=== PATIENT | male | born 1980 | race American Indian/Alaskan Native ===

== ENCOUNTER 2016-09-14 01:43 | Emergency (ER) | payer SELFPAY ==
--- NOTE | 2016-09-14 04:15 | XRay Report ---
FINAL REPORT EXAM: XR SHOULDER 2 RT HISTORY: rt shoulder pain post fall TECHNIQUE: 3 views of the right shoulder. PRIORS: None FINDINGS: Some degenerative change noted at the AC joint. Slight transverse widening of the AC joint may relate to remote injury. No elevation of the clavicle relative to the acromion to suggest acute AC separation. Normal subacromial space. Normal glenohumeral joint. No acute fracture or dislocation seen. IMPRESSION: 1. No acute finding. Some degenerative change at the AC joint, slight transverse widening of the AC joint may be related to remote injury.
[2016-09-14] MEDS ORDERED: TORADOL IM ONE (04:45)
--- NOTE | 2016-09-14 04:52 | Emergency Department Report ---
HPI - General Chief Complaint: Extremity Injury, Upper Time Seen by Provider: 09/14/16 04:39 - HPI HPI: 36-year-old male presents today with right shoulder pain 1 day. Patient states he slipped on ice on his driveway and landed on his right shoulder. Denies head injury or loss of consciousness. Denies numbness, weakness, paresthesias. He describes his pain as 8 out of 10 constant, sharp pain. Denies neck and back pain. Denies fever, chills, nausea, vomiting, chest pain, shortness of breath, abdominal pain. ED Past Medical Hx - Past Medical History Previous Medical History?: No - Surgical History Past Surgical History?: Yes Additional Surgical History: rt leg surgery - Social History Smoking Status: Current Every Day Smoker Substance Use Type: None - Medications Home Medications: Home Medications Medication Instructions Recorded Confirmed Last Taken Type Cyclobenzaprine HCl [Flexeril 5 MG 5 mg PO TID #15 tab 09/14/16 Unknown Rx TAB] Ketorolac [Toradol] 10 mg PO Q6H PRN #20 tablet 09/14/16 Unknown Rx ED Review of Systems ROS: Stated complaint: RT SHOULDER PAIN Other details as noted in HPI Constitutional: denies: chills, fever, malaise Eyes: denies: eye pain ENT: denies: ear pain, throat pain, congestion Respiratory: denies: cough, shortness of breath, wheezing Cardiovascular: denies: chest pain, palpitations Endocrine: no symptoms reported Gastrointestinal: denies: abdominal pain, nausea, vomiting Musculoskeletal: arthralgia. denies: back pain Skin: denies: rash Neurological: denies: headache, weakness, numbness, paresthesias Physical Exam - Physical Exam Vital Signs: Vital Signs 09/14/16 02:05 Temperature 97.7 F Pulse Rate 112 H Respiratory 18 Rate Blood Pressure 143/95 Blood Pressure 143/95 [Right] O2 Sat by Pulse 99 Oximetry Physical Exam: GENERAL: The patient is well-developed and well-nourished. Patient is in NAD. HEAD: Normocephalic. Atraumatic. CHEST/LUNGS: Clear to auscultation throughout. HEART/CARDIOVASCULAR: Regular rate and rhythm. No murmurs, rubs or gallops. ABDOMEN: Abdomen is soft, nontender. Bowel sounds normoactive. No guarding or rebound tenderness. RIGHT SHOULDER: Tenderness to palpation of shoulder joint and over the deltoid muscle group. Limited range of motion due to pain. Normal sensation. 2 point discrimination intact. Peripheral pulses intact. Capillary refill less than 2 seconds. NEURO: Alert and oriented x 3. Normal gait. ED Course Vital Signs 09/14/16 02:05 Temperature 97.7 F Pulse Rate 112 H Respiratory 18 Rate Blood Pressure 143/95 Blood Pressure 143/95 [Right] O2 Sat by Pulse 99 Oximetry ED Medical Decision Making - Lab Data Vital Signs 09/14/16 09/14/16 09/14/16 02:05 04:58 04:59 Temperature 97.7 F 97.8 F Pulse Rate 112 H 78 Respiratory 18 16 16 Rate Blood Pressure 143/95 Blood Pressure 143/95 110/63 [Right] O2 Sat by Pulse 99 95 Oximetry - Radiology Data Radiology results: report reviewed Right shoulder x-ray: Some degenerative change noted at the AC joint. Slight transverse widening of the AC joint where related to remote injury. No elevation of the clavicle relative to the acromion to suggest acute AC separation. Normal subacromial space. Normal glenohumeral joint. No acute fracture or dislocation seen. - Medical Decision Making 36-year-old male presents today with right shoulder pain post fall. His x-ray results revealed no acute finding. Some degenerative change at the AC joint, slight transverse widening of the AC joint may be related to remote injury. Patient has been provided with a referral for orthopedic. Patient was given Toradol for pain control. Patient is in no acute distress at this time. He will be discharged home and is encouraged to follow up with a orthopedic and primary care provider. He will be sent home on Flexeril and Toradol and is encouraged to return to the emergency room for any worsening symptoms. Critical care attestation.: If time is entered above; I have spent that time in minutes in the direct care of this critically ill patient, excluding procedure time. ED Disposition Clinical Impression: Shoulder pain Qualifiers: Laterality: right Chronicity: acute Qualified Code(s): M25.511 - Pain in right shoulder Shoulder contusion Qualifiers: Encounter type: initial encounter Laterality: right Qualified Code(s): S40.011A - Contusion of right shoulder, initial encounter Disposition: DISCHARGED TO HOME OR SELFCARE Is pt being admited?: No Does the pt Need Aspirin: No Condition: Stable Instructions: Shoulder Sprain (ED), Arthralgia (ED) Additional Instructions: Follow-up with orthopedic. Return to emergency department if symptoms worsen. Prescriptions: Cyclobenzaprine HCl [Flexeril 5 MG TAB] 5 mg PO TID #15 tab Ketorolac [Toradol] 10 mg PO Q6H PRN #20 tablet PRN Reason: Pain Referrals: PRIMARY CARE, [Primary Care Provider] - 3-5 Days HILARY BEE MD [Staff Physician] - 3-5 Days Forms: Work/School Release Form(ED) Time of Disposition: 04:54
[2016-09-14 05:00] VITALS: BP 110/63
== END 2016-09-14 05:08 | disposition home or self-care (01) ==
LOC: ED 01:43
DX: S40.011A Contusion of right shoulder, initial encounter (principal); F17.200 Nicotine dependence, unspecified, uncomplicated; W01.0XXA Fall on same level from slipping, tripping and stumbling without subsequent striking against object, initial encounter; Y93.89 Activity, other specified; Y99.8 Other external cause status; Y92.89 Other specified places as the place of occurrence of the external cause
CPT/HCPCS: 73030; 96372; 99283; J1885

== ENCOUNTER 2016-09-16 08:32 | Emergency (ER) | payer SELFPAY ==
--- NOTE | 2016-09-16 10:59 | Emergency Department Report ---
HPI - General Chief Complaint: Headache Time Seen by Provider: 09/16/16 10:34 - HPI HPI: 36-year-old male presents today with headache 2 days. Patient states that he was seen here 2 days ago for right shoulder pain and was prescribed Flexeril and Toradol. Positive for sudden onset of headache post medication. Last dose of medication was last night at 8 PM. Denies history of headaches. Positive for nausea and blurred vision. Denies fever, chills, chest pain, shortness of breath, abdominal pain. ED Past Medical Hx - Past Medical History Previous Medical History?: No - Surgical History Additional Surgical History: rt leg surgery - Social History Smoking Status: Current Every Day Smoker Substance Use Type: None - Medications Home Medications: Home Medications Medication Instructions Recorded Confirmed Last Taken Type Cyclobenzaprine HCl [Flexeril 5 MG 5 mg PO TID #15 tab 09/14/16 Unknown Rx TAB] Ketorolac [Toradol] 10 mg PO Q6H PRN #20 tablet 09/14/16 Unknown Rx traMADol [Ultram 50 MG tab] 50 mg PO Q6HR PRN #14 tablet 09/16/16 Unknown Rx ED Review of Systems ROS: Stated complaint: HEADACHES/MED Other details as noted in HPI Constitutional: denies: chills, fever, malaise Eyes: vision change. denies: eye pain ENT: denies: ear pain, throat pain, congestion Respiratory: denies: cough, shortness of breath, wheezing Cardiovascular: denies: chest pain, palpitations Endocrine: no symptoms reported Gastrointestinal: denies: abdominal pain, nausea, vomiting Neurological: headache. denies: weakness, numbness, paresthesias Physical Exam - Physical Exam Vital Signs: Vital Signs 09/16/16 08:47 Temperature 98.7 F Pulse Rate 76 Respiratory 16 Rate Blood Pressure 127/91 [Right] O2 Sat by Pulse 100 Oximetry Physical Exam: GENERAL: The patient is well-developed and well-nourished. Patient is in NAD. HEAD: Normocephalic. Atraumatic. EYES: Extraocular motions are intact, PERRL. NOSE: Normal nasal mucosa with no nasal discharge. THROAT: No erythema, swelling or exudates. NECK: No midline tenderness to palpation. Positive for bilateral paraspinal tenderness to palpation of cervical region. CHEST/LUNGS: Clear to auscultation throughout. HEART/CARDIOVASCULAR: Regular rate and rhythm. No murmurs, rubs or gallops. ABDOMEN: Abdomen is soft, nontender. No guarding or rebound tenderness. RIGHT SHOULDER: Tenderness to palpation of shoulder joint and over the deltoid muscle group. Limited range of motion due to pain. Normal sensation. 2 point discrimination intact. Peripheral pulses intact. Capillary refill less than 2 seconds. Neuro: Alert and oriented 3, normal gait, fluid speech, EOMs intact, normal facial sensation, strength exam 5/5 upper and lower extremities, GCS equals 15, finger to nose normal, negative Romberg test. ED Course Vital Signs 09/16/16 08:47 Temperature 98.7 F Pulse Rate 76 Respiratory 16 Rate Blood Pressure 127/91 [Right] O2 Sat by Pulse 100 Oximetry ED Medical Decision Making - Lab Data Vital Signs 09/16/16 08:47 Temperature 98.7 F Pulse Rate 76 Respiratory 16 Rate Blood Pressure 127/91 [Right] O2 Sat by Pulse 100 Oximetry - Radiology Data Radiology results: report reviewed CT HEAD WITHOUT CONTRAST: HISTORY: Headache, blurred vision. Serial contiguous axial images were obtained through the cranium. Intravenous contrast material was not administered. The ventricles are normal in size and appearance. There is no mass effect or midline shift. No areas of abnormally increased or decreased attenuation are seen. No mass lesion is seen. The mastoid air cells and visualized portions of the sinuses are normal. IMPRESSION: Cranial CT scan within normal limits. - Medical Decision Making 36-year-old male presents today with headache 2 days. Patient complains of sudden onset post taking Flexeril and Toradol. His cranial CT scan is within normal limits. Patient is asked to discontinue his medication. Patient is in no acute distress at this time. He will be discharged home and is encouraged to follow up with a primary care provider. He will be sent home on tramadol for his shoulder pain and is encouraged to return to the emergency room for any worsening symptoms. Critical care attestation.: If time is entered above; I have spent that time in minutes in the direct care of this critically ill patient, excluding procedure time. ED Disposition Clinical Impression: Shoulder pain Qualifiers: Laterality: right Chronicity: acute Qualified Code(s): M25.511 - Pain in right shoulder Headache Qualifiers: Headache type: unspecified Headache chronicity pattern: acute headache Intractability: not intractable Qualified Code(s): R51 - Headache Disposition: DISCHARGED TO HOME OR SELFCARE Is pt being admited?: No Does the pt Need Aspirin: No Condition: Stable Instructions: Shoulder Sprain (ED), Arthralgia (ED), Acute Headache (ED) Additional Instructions: Follow-up with primary care provider. Return to the emergency department if symptoms worsen. Prescriptions: traMADol [Ultram 50 MG tab] 50 mg PO Q6HR PRN #14 tablet PRN Reason: Pain Referrals: PRIMARY CARE, [Primary Care Provider] - 3-5 Days HILARY BEE MD [Staff Physician] - 3-5 Days [facility] [Outside] - 3-5 Days Forms: Work/School Release Form(ED) Time of Disposition: 11:51
--- NOTE | 2016-09-16 11:33 | Cat Scan Report ---
CT HEAD WITHOUT CONTRAST: HISTORY: Headache, blurred vision. Serial contiguous axial images were obtained through the cranium. Intravenous contrast material was not administered. The ventricles are normal in size and appearance. There is no mass effect or midline shift. No areas of abnormally increased or decreased attenuation are seen. No mass lesion is seen. The mastoid air cells and visualized portions of the sinuses are normal. IMPRESSION: Cranial CT scan within normal limits.
[2016-09-16 12:07] VITALS: BP 129/88
== END 2016-09-16 12:06 | disposition home or self-care (01) ==
LOC: ED 08:32
DX: M25.511 Pain in right shoulder (principal); R51 Headache; F17.200 Nicotine dependence, unspecified, uncomplicated
CPT/HCPCS: 70450

== ENCOUNTER 2016-09-20 23:41 | Emergency (ER) | payer SELFPAY | END 2016-09-21 01:59 | disposition left against medical advice (07) | LOC: ED 23:41 | DX: R42 Dizziness and giddiness (principal); R53.1 Weakness; Z53.21 Procedure and treatment not carried out due to patient leaving prior to being seen by health care provider ==

== ENCOUNTER 2016-09-21 07:59 | Emergency (ER) | payer SELFPAY ==
[2016-09-21 08:53] LABS: Eosinophils % (Auto) 1.7 % (0.0-4.3); Hematocrit 43.5 % (35.5-45.6); Hemoglobin 14.3 gm/dl (11.8-15.2); Mean Corpuscular HGB Conc 33 % (32-34); Mean Corpuscular Hemoglobin 30 pg (28-32); Mean Corpuscular Volume 92 fl (84-94); Platelet Count 200 K/mm3 (140-440); Red Blood Count 4.76 M/mm3 (3.65-5.03); Red Cell Distribution Width 14.3 % (13.2-15.2); White Blood Count 7.7 K/mm3 (4.5-11.0)
[2016-09-21 08:54] LABS: Anion Gap 15 mmol/L; Blood Urea Nitrogen 12 mg/dL (9-20); Calcium 8.6 mg/dL (8.4-10.2); Carbon Dioxide 26 mmol/L (22-30); Chloride 103.1 mmol/L (98-107); Glucose 100 mg/dL (75-100); Potassium 4.1 mmol/L (3.6-5.0); Sodium 140 mmol/L (137-145)
--- NOTE | 2016-09-21 08:56 | XRay Report ---
ROUTINE CHEST, TWO VIEWS: HISTORY: Shortness of breath. The trachea, heart, mediastinal contour, lung calix and bony thorax are unremarkable. IMPRESSION: Unremarkable chest x-ray.
[2016-09-21 13:00] VITALS: BP 119/74
--- NOTE | 2016-09-21 13:02 | Emergency Department Report ---
HPI - General Chief Complaint: Dyspnea/Respdistress Time Seen by Provider: 09/21/16 12:35 - HPI HPI: Chief complaint: Feeling weak HPI: Patient is 36-year-old male who has been seen here several times this month once the fall and a bruise shoulder and wants for a headache. X-ray of the shoulder and CT scan of his head is normal. Patient states yesterday he gave plasma but there was a problem with the machine and he did not receive his red blood cells back. Patient states since then he's felt weak. Patient states for 1 day had a productive cough with green sputum. Patient complains of mild pleuritic chest pain only on coughing and feels like he has a fever. Patient has a slight sore throat. Mode of arrival: private car Source: Patient Began: Yesterday Duration: Continuous Context: See above Quality: See above Severity: 0 out of 10 Improved with: Nothing Worsened with: Standing Associated signs and symptoms: See above ED Past Medical Hx - Surgical History Additional Surgical History: rt leg surgery - Social History Smoking Status: Current Every Day Smoker Substance Use Type: None - Medications Home Medications: Home Medications Medication Instructions Recorded Confirmed Last Taken Type Cyclobenzaprine HCl [Flexeril 5 MG 5 mg PO TID #15 tab 09/14/16 Unknown Rx TAB] Ketorolac [Toradol] 10 mg PO Q6H PRN #20 tablet 09/14/16 Unknown Rx traMADol [Ultram 50 MG tab] 50 mg PO Q6HR PRN #14 tablet 09/21/16 Unknown Rx ED Review of Systems ROS: Stated complaint: DIZZINESS/WEAKNESS Other details as noted in HPI ROS Constitutional: ? fever ENT: No uri symptoms Cardiovascular: No chest pain Respiratory: No cough GI: No nausea vomiting or diarrhea : No dysuria frequency or urgency, Skin: No rash Neuro: No focal weakness or numbness Psych: No depression Shiv/lymph: No edema Physical Exam - Physical Exam Vital Signs: Vital Signs 09/21/16 09/21/16 08:15 12:40 Temperature 97.6 F Pulse Rate 71 76 Respiratory 20 16 Rate Blood Pressure 126/86 Blood Pressure 126/79 [Left] O2 Sat by Pulse 100 Oximetry Physical Exam: GENERAL: The patient is well-developed well-nourished . Orthostatic vital signs within normal limits. HEENT: Normocephalic. Atraumatic. Extraocular motions are intact. Patient has moist mucous membranes. NECK: Supple. No meningitic signs are noted. There is no adenopathy noted. CHEST/LUNGS: Clear to auscultation. There is no respiratory distress noted. HEART/CARDIOVASCULAR: Regular. There is no tachycardia. There is no gallop rub or murmur. ABDOMEN: Abdomen is soft, nontender. Patient has normal bowel sounds. There is no abdominal distention. SKIN: There is no rash. There is no edema. There is no diaphoresis. NEURO: The patient is awake, alert, and oriented. The patient is cooperative. The patient has no focal neurologic deficits. The patient has normal speech. MUSCULOSKELETAL: There is no tenderness or deformity. There is no limitation range of motion. There is no evidence of acute injury. ED Course Vital Signs 09/21/16 09/21/16 08:15 12:40 Temperature 97.6 F Pulse Rate 71 76 Respiratory 20 16 Rate Blood Pressure 126/86 Blood Pressure 126/79 [Left] O2 Sat by Pulse 100 Oximetry ED Medical Decision Making - Lab Data Result diagrams: 09/21/16 08:24 09/21/16 08:24 Rapid strep is negative. - EKG Data -: EKG Interpreted by Mo EKG shows normal: sinus rhythm Rate: normal (69) - EKG Data When compared to previous EKG there are: previous EKG unavailable Interpretation: normal EKG - Radiology Data Radiology results: report reviewed (chest x-ray shows no acute process) Critical care attestation.: If time is entered above; I have spent that time in minutes in the direct care of this critically ill patient, excluding procedure time. ED Disposition Clinical Impression: Acute bronchitis Qualifiers: Bronchitis organism: unspecified organism Qualified Code(s): J20.9 - Acute bronchitis, unspecified Disposition: DISCHARGED TO HOME OR SELFCARE Is pt being admited?: No Does the pt Need Aspirin: No Condition: Stable Instructions: Acute Bronchitis (ED) Prescriptions: traMADol [Ultram 50 MG tab] 50 mg PO Q6HR PRN #14 tablet PRN Reason: Pain Referrals: PRIMARY CARE, [Primary Care Provider] - 3-5 Days Time of Disposition: 13:38
== END 2016-09-21 13:46 | disposition home or self-care (01) ==
LOC: ED 07:59
DX: J20.9 Acute bronchitis, unspecified (principal); F17.200 Nicotine dependence, unspecified, uncomplicated
CPT/HCPCS: 36415; 71020; 80048; 84484; 85025; 87116; 87430; 93005; 93010; 99284

== ENCOUNTER 2016-12-13 00:30 | Emergency (ER) | payer SELFPAY ==
[2016-12-13] MEDS ORDERED: TYLENOL PO ONE ×2 (01:59→03:28)
--- NOTE | 2016-12-13 03:28 | XRay Report ---
FINAL REPORT PROCEDURE: XR KNEE 1-2V RT TECHNIQUE: RIGHT knee radiographs, AP and lateral views. CPT 56871 HISTORY: right knee pain COMPARISON: No prior studies are available for comparison. FINDINGS: Fracture (s) and/or Dislocation(s): None . Alignment: Normal . Joint space(s): Normal . Soft tissues: Normal . Bone mineralization: Normal . Foreign bodies: None . IMPRESSION: Normal Examination.
--- NOTE | 2016-12-13 03:29 | Emergency Department Report ---
ED Lower Extremity HPI - General Chief Complaint: Extremity Injury, Lower Stated Complaint: KNEE PAIN Time Seen by Provider: 12/13/16 02:58 Source: patient Mode of arrival: Ambulatory Limitations: No Limitations - History of Present Illness Initial Comments: Patient here reported that 2 days ago while at work he slipped on some ice in the freezer and injured his right knee. She reports is having pain 10 out of 10 to her right knee. 2 [id number] medication but did not help patient is allergic to Motrin. Denies any numbness or tingling to right lower extremity. Denies any head injury. MD Complaint: knee injury (right) Onset/Timin -: days(s) Injury: Knee: Right (slipped and fell on some ice at work now with pain.) Type of Injury: other (fell on the right knee) Place: work Severity: severe Severity scale (0 -10): 10 Improves With: cold therapy, rest, other ([id number] pain medication) Worsens With: weight bearing, movement, palpation Context: fall Associated Symptoms: swelling, able to partially bear weight. denies: numbness , tingling Treatments Prior to Arrival: cold therapy, other ([id number]-[id number] pain medication) - Related Data Previous Rx's Medication Instructions Recorded Last Taken Type Cyclobenzaprine HCl [Flexeril 5 MG 5 mg PO TID #15 tab 09/14/16 Unknown Rx TAB] Ketorolac [Toradol] 10 mg PO Q6H PRN #20 tablet 09/14/16 Unknown Rx traMADol [Ultram 50 MG tab] 50 mg PO Q6HR PRN #20 tablet 12/13/16 Unknown Rx Allergies Allergy/AdvReac Type Severity Reaction Status Date / Time ibuprofen [From Motrin] AdvReac Nausea Verified 12/13/16 01:58 ED Review of Systems ROS: Stated complaint: KNEE PAIN Other details as noted in HPI Comment: All other systems reviewed and negative Constitutional: denies: chills, fever Respiratory: no symptoms reported Cardiovascular: denies: chest pain, palpitations, edema, syncope Gastrointestinal: denies: abdominal pain, nausea, vomiting Musculoskeletal: joint swelling, arthralgia. denies: back pain Skin: denies: rash Neurological: denies: headache, weakness, confusion, abnormal gait, vertigo ED Past Medical Hx - Past Medical History Previous Medical History?: Yes Hx Hypertension: Yes (diet-controlled) - Surgical History Past Surgical History?: Yes Additional Surgical History: rt leg surgery - Family History Family history: hypertension - Social History Smoking Status: Never Smoker Substance Use Type: None - Medications Home Medications: Home Medications Medication Instructions Recorded Confirmed Last Taken Type Cyclobenzaprine HCl [Flexeril 5 MG 5 mg PO TID #15 tab 09/14/16 Unknown Rx TAB] Ketorolac [Toradol] 10 mg PO Q6H PRN #20 tablet 09/14/16 Unknown Rx traMADol [Ultram 50 MG tab] 50 mg PO Q6HR PRN #20 tablet 12/13/16 Unknown Rx ED Physical Exam - General Limitations: No Limitations General appearance: alert, in no apparent distress - Head Head exam: Present: atraumatic, normocephalic, normal inspection - Eye Eye exam: Present: normal appearance, PERRL, EOMI. Absent: periorbital swelling , periorbital tenderness Pupils: Present: normal accommodation - Neck Neck exam: Present: normal inspection, full ROM. Absent: tenderness, meningismus, lymphadenopathy - Respiratory Respiratory exam: Present: normal lung sounds bilaterally. Absent: respiratory distress, chest wall tenderness - Cardiovascular Cardiovascular Exam: Present: regular rate, normal rhythm, normal heart sounds - GI/Abdominal GI/Abdominal exam: Present: soft, normal bowel sounds. Absent: distended, tenderness, guarding, rebound, rigid - Extremities Exam Extremities exam: Present: normal inspection, tenderness (right anterior knee), normal capillary refill. Absent: pedal edema, joint swelling, calf tenderness - Expanded Lower Extremity Exam Right Hip exam: Present: normal inspection, full ROM, pelvic stability. Absent: tenderness, swelling, abrasion, laceration, ecchymosis, deformity, crepidus, dislocation, erythema, external rotation, internal rotation, shortening Upper Leg exam: Present: normal inspection, full ROM. Absent: tenderness, swelling, abrasion, laceration, ecchymosis, deformity, crepidus, dislocation, erythema Knee exam: Present: normal inspection, full ROM (for full range of motion to his right knee but he said it hurts with flexion and extension.), tenderness ( anterior knee.), full knee extension. Absent: swelling, abrasion, laceration, ecchymosis, deformity, crepidus, dislocation, erythema, effusion, pain w/ pronation/supination, posterior draw sign, pain/laxity with valgus, pain/laxity with varus Lower Leg exam: Present: normal inspection, full ROM. Absent: tenderness, swelling, abrasion, laceration, ecchymosis, deformity, crepidus, dislocation, erythema, palpable cord, Kaity's sign Ankle exam: Present: normal inspection, full ROM. Absent: tenderness, swelling , abrasion, laceration, ecchymosis, deformity, crepidus, dislocation, erythema, anterior draw sign Foot/Toe exam: Present: normal inspection, full ROM. Absent: tenderness, swelling, abrasion, laceration, ecchymosis, deformity, crepidus, dislocation, erythema, amputation, puncture wound, foreign body, calcaneal tenderness, tenderness at base of 5th metatarsal, nail avulsion, subungual hematoma Neuro vascular tendon exam: Present: no vascular compromise. Absent: pulse deficit, abnormal cap refill, motor deficit, sensory deficit, tendon deficit, extremity cold to touch, pallor, abnormal 2-point discrimination, decreased fine /light touch, foot drop, peroneal nerve deficit, significant pain with passive ROM of distal joint Gait: Positive: observed and limited by pain - Neurological Exam Neurological exam: Present: alert, oriented X3, normal gait, reflexes normal - Psychiatric Psychiatric exam: Present: normal affect, normal mood - Skin Skin exam: Present: warm, dry, intact, normal color. Absent: rash ED Course Vital Signs 12/13/16 12/13/16 12/13/16 01:48 03:03 03:42 Temperature 97.7 F Pulse Rate 87 Respiratory 18 20 20 Rate Blood Pressure 141/104 Blood Pressure 141/104 [Left] O2 Sat by Pulse 98 Oximetry Vital Signs 12/13/16 12/13/16 12/13/16 01:48 03:03 03:42 Temperature 97.7 F Pulse Rate 87 Respiratory 18 20 20 Rate Blood Pressure 141/104 Blood Pressure 141/104 [Left] O2 Sat by Pulse 98 Oximetry Vital Signs 12/13/16 12/13/16 12/13/16 01:48 03:03 03:42 Temperature 97.7 F Pulse Rate 87 Respiratory 18 20 20 Rate Blood Pressure 141/104 Blood Pressure 141/104 [Left] O2 Sat by Pulse 98 Oximetry 12/13/16 04:13 Temperature 97.9 F Pulse Rate 87 Respiratory 20 Rate Blood Pressure Blood Pressure 138/90 [Left] O2 Sat by Pulse 98 Oximetry - Reevaluation(s) Reevaluation #1: 12/13/16 04:13 Patient given Tylenol 1 g in triage area for knee pain which she said his pain is better. - Orthopedic Splinting/Casting Injury #1 Side: right Lower Extremity Injury Location: knee Lower Extremity Immobilizer: Candido wrap Other Orthopedic Equipment: crutches ED Lower Extremity MDM - Radiology Data Radiology results: report reviewed X-ray of the right knee reveal no acute fracture or dislocation. No effusion noted. - Medical Decision Making ED course: She is allergic to Motrin and therefore he was given Tylenol 1 gm in triage area for right knee pain. The patient had x-ray of his right knee was negative. He is tender to palpate to anterior knee and with active and passive range of motion. See procedure note and splinting. I discussed with patient that he has knee pain and that if it continues need to follow-up with orthopedic doctor. Fritz protocol and treatment plan and he reports understanding. Condition discharged home with prescription for Ultram. Critical care attestation.: If time is entered above; I have spent that time in minutes in the direct care of this critically ill patient, excluding procedure time. ED Disposition Clinical Impression: Arthralgia of right knee Right knee injury Qualifiers: Encounter type: initial encounter Qualified Code(s): S89.91XA - Unspecified injury of right lower leg, initial encounter Disposition: DISCHARGED TO HOME OR SELFCARE Is pt being admited?: No Does the pt Need Aspirin: No Condition: Stable Instructions: Arthralgia (ED), Knee Pain (ED), Knee Exercises (GEN), RICE Therapy (ED) Additional Instructions: If you continue to have knee pain, please follow up with orthopedic doctor. You told me that he did not have a primary care physician, so please follow-up with outside Medical Center to manage her chronic hypertension Follow-up RICE Prescriptions: traMADol [Ultram 50 MG tab] 50 mg PO Q6HR PRN #20 tablet PRN Reason: Pain Referrals: [facility] [Outside] - 3-5 Days LOPEZ MATTSON MD [Staff Physician] - 3-5 Days Forms: Work/School Release Form(ED)
[2016-12-13 04:14] VITALS: BP 138/90
== END 2016-12-13 04:33 | disposition home or self-care (01) ==
LOC: ED 00:30
DX: S89.91XA Unspecified injury of right lower leg, initial encounter (principal); I10 Essential (primary) hypertension; W19.XXXA Unspecified fall, initial encounter; Y93.89 Activity, other specified; Y99.8 Other external cause status; Y92.69 Other specified industrial and construction area as the place of occurrence of the external cause

== ENCOUNTER 2016-12-17 13:24 | Emergency (ER) | payer SELFPAY ==
[2016-12-17] MEDS ORDERED: CATAPRES PO ONE (19:05)
--- NOTE | 2016-12-17 20:07 | XRay Report ---
FINAL REPORT EXAM: XR ANKLE 3 RT HISTORY: ankle pain and swelling TECHNIQUE: AP, lateral, and oblique views of the right ankle PRIORS: None. FINDINGS: There is no evidence for acute fracture or dislocation. No soft tissue swelling or radiopaque foreign bodies are seen. The ankle mortise is intact. Bony mineralization is normal and joint spaces are maintained. Posterior spurring off the talus is present. IMPRESSION: No acute soft tissue or bony abnormality noted.
[2016-12-17] MEDS ORDERED: TYLENOL PO ONE (20:50)
[2016-12-17 21:04] VITALS: BP 129/85
--- NOTE | 2016-12-17 22:11 | Emergency Department Report ---
Entered by VERONICA ARROYO, acting as scribe for CATARINO PAINTER NP. ED Lower Extremity HPI - General Chief Complaint: Extremity Injury, Lower Stated Complaint: RT ANKLE PAIN Time Seen by Provider: 12/17/16 18:47 Source: patient Mode of arrival: Ambulatory Limitations: No Limitations - History of Present Illness Initial Comments: 36 year old male with a PMHx of HTN presents to the ED c/o sudden right ankle pain that began 3 days ago. Patient states that he was evaluated on 12/13/2016 in this ED after twisting his right knee. He states that his right knee pain has now radiated to his right ankle. Rates right ankle pain an 8 out 10 in severity. He notes in had right knee, right ankle, and right kay surgery in the past. Denies any deformity, swelling, numbness, tingling, chest pain, and shortness of breath. Pain is worsened with walking. He is currently aware of HTN and cannot afford his medication. Denies using tobacco products and alcohol consumption. Allergic to Ibuprofen. MD Complaint: ankle injury (right, secondary to twisting right knee) Onset/Timin -: days(s) Injury: Ankle: Right (secondary to twisting right knee) Place: home Severity: moderate Severity scale (0 -10): 8 Improves With: immobilization Worsens With: weight bearing, movement, palpation Associated Symptoms: able to partially bear weight. denies: swelling, numbness , tingling, other (deformity, chest pain, shortness of breath) - Related Data Previous Rx's Medication Instructions Recorded Last Taken Type Cyclobenzaprine HCl [Flexeril 5 MG 5 mg PO TID #15 tab 09/14/16 Unknown Rx TAB] Ketorolac [Toradol] 10 mg PO Q6H PRN #20 tablet 09/14/16 Unknown Rx traMADol [Ultram 50 MG tab] 50 mg PO Q6HR PRN #20 tablet 12/13/16 Unknown Rx traMADol [Ultram 50 MG tab] 50 mg PO PRN PRN #14 tablet 12/17/16 Unknown Rx Allergies Allergy/AdvReac Type Severity Reaction Status Date / Time ibuprofen [From Motrin] AdvReac Nausea Verified 12/13/16 01:58 ED Review of Systems Comment: All other systems reviewed and negative Constitutional: denies: chills, fever, other (tingling and shortness of breath) ENT: denies: ear pain, throat pain Respiratory: denies: orthopnea, shortness of breath, SOB with exertion, SOB at rest Cardiovascular: denies: chest pain, palpitations, dyspnea on exertion, orthopnea Endocrine: no symptoms reported Gastrointestinal: denies: nausea, vomiting Genitourinary: denies: urgency, dysuria Musculoskeletal: other (right ankle pain, but denies right ankle deformity). denies: joint swelling (right ankle) Skin: denies: rash, lesions Neurological: denies: numbness ED Past Medical Hx - Past Medical History Hx Hypertension: Yes (diet-controlled) - Surgical History Additional Surgical History: rt leg surgery - Social History Smoking Status: Never Smoker Substance Use Type: None - Medications Home Medications: Home Medications Medication Instructions Recorded Confirmed Last Taken Type Cyclobenzaprine HCl [Flexeril 5 MG 5 mg PO TID #15 tab 09/14/16 Unknown Rx TAB] Ketorolac [Toradol] 10 mg PO Q6H PRN #20 tablet 09/14/16 Unknown Rx traMADol [Ultram 50 MG tab] 50 mg PO Q6HR PRN #20 tablet 12/13/16 Unknown Rx traMADol [Ultram 50 MG tab] 50 mg PO PRN PRN #14 tablet 12/17/16 Unknown Rx ED Physical Exam - General Limitations: No Limitations General appearance: alert, in no apparent distress - Head Head exam: Present: atraumatic, normocephalic - Eye Eye exam: Present: normal appearance, PERRL, EOMI Pupils: Present: normal accommodation - ENT ENT exam: Present: normal exam, mucous membranes moist - Neck Neck exam: Present: normal inspection, full ROM. Absent: tenderness, lymphadenopathy - Respiratory Respiratory exam: Present: normal lung sounds bilaterally. Absent: respiratory distress - Cardiovascular Cardiovascular Exam: Present: regular rate, normal rhythm, normal heart sounds. Absent: systolic murmur, diastolic murmur, rubs, gallop - GI/Abdominal GI/Abdominal exam: Present: soft. Absent: distended, tenderness - Extremities Exam Extremities exam: Present: full ROM (limited right ankle), tenderness (moderate right ankle), normal capillary refill. Absent: pedal edema, joint swelling ( right ankle), calf tenderness - Expanded Lower Extremity Exam Right Hip exam: Present: normal inspection, full ROM Upper Leg exam: Present: normal inspection, full ROM Knee exam: Present: normal inspection, full ROM Lower Leg exam: Present: normal inspection, full ROM. Absent: tenderness Foot/Toe exam: Present: normal inspection, tenderness (moderate right ankle). Absent: full ROM (limited right ankle due to pain), swelling, abrasion, laceration, ecchymosis, deformity, dislocation, erythema, puncture wound Neuro vascular tendon exam: Present: no vascular compromise. Absent: pulse deficit, abnormal cap refill, motor deficit, sensory deficit, tendon deficit, pallor Gait: Positive: antalgic 1 - pain - Back Exam Back exam: Present: normal inspection, full ROM - Neurological Exam Neurological exam: Present: alert, oriented X3 - Psychiatric Psychiatric exam: Present: normal affect, normal mood - Skin Skin exam: Present: warm, dry, intact. Absent: rash, erythema, pallor, abrasion , ecchymosis ED Course Vital Signs 12/17/16 12/17/16 12/17/16 14:02 20:01 20:11 Temperature 98.1 F Pulse Rate 94 H 82 82 Respiratory 16 18 Rate Blood Pressure 148/96 122/86 Blood Pressure 122/86 [Left] O2 Sat by Pulse 100 97 Oximetry 12/17/16 21:03 Temperature 99.3 F Pulse Rate 97 H Respiratory 12 Rate Blood Pressure Blood Pressure 129/85 [Left] O2 Sat by Pulse 100 Oximetry - Reevaluation(s) Reevaluation #1: 12/17/16 20:55 Patient is resting comfortably. No signs of distress or toxic appearance. ED Lower Extremity MDM - Medical Decision Making Ed course: 36-year-old male that presents with right ankle pain. 1- prescribed acetaminophen 600 mg by mouth. 2- x-ray results read by Dr. Tavera. Impression. No acute soft tissue or bony abdomen noted. 3- patient received a Candido bandage. No numbness or tingling sensation noted. 4- I instructed patient to follow-up with orthopedic doctor in 3-5 days. 5- follow with a primary care/crime lab analyst doctor in 3- 5 days as well for hypertension. 6-instructed the patient to [facility] 7- at this time the patient does not seem toxic or ill appearance. Agrees to discharge plan. she reported this time. ED Disposition Clinical Impression: Sprain of ankle Disposition: DISCHARGED TO HOME OR SELFCARE Is pt being admited?: No Does the pt Need Aspirin: No Condition: Stable Instructions: Ankle Sprain (ED), RICE Therapy (ED) Additional Instructions: follow-up with her primary care doctor in 3-5 days. Follow-up with her orthopedic doctor in 3-5 days. If he had a sudden symptoms of numbness, tingling, swelling of the extremity present for about emergency room. Rest, elevate, compress, and ice to extremity Prescriptions: traMADol [Ultram 50 MG tab] 50 mg PO PRN PRN #14 tablet PRN Reason: Pain Referrals: PRIMARY CARE, [Primary Care Provider] - 3-5 Days ODELL RAIN MD [Staff Physician] - 3-5 Days [facility] [Outside] - 3-5 Days [facility] [Outside] - 3-5 Days This documentation as recorded by the DINA enriquez JASMINE,accurately reflects the service I personally performed and the decisions made by me,CATARINO PAINTER, ELVI.
== END 2016-12-17 21:16 | disposition home or self-care (01) ==
LOC: ED 13:24
DX: S93.401A Sprain of unspecified ligament of right ankle, initial encounter (principal); I10 Essential (primary) hypertension; Z88.6 Allergy status to analgesic agent; X58.XXXA Exposure to other specified factors, initial encounter; Y93.89 Activity, other specified; Y99.8 Other external cause status; Y92.098 Other place in other non-institutional residence as the place of occurrence of the external cause
CPT/HCPCS: 99283

== ENCOUNTER 2017-08-05 19:21 | Emergency (ER) | payer OTHER ==
--- NOTE | 2017-08-05 21:14 | XRay Report ---
FINAL REPORT EXAM: XR ANKLE 3+V LT HISTORY: left ankle injury, ankle pain TECHNIQUE: Left ankle three views PRIORS: None. FINDINGS: There is lucency seen through the medial malleolus consistent with an acute traumatic nondisplaced fracture. There is medial soft tissue swelling. No additional acute bony findings are identified. Joint spaces are within normal limits. IMPRESSION: Acute nondisplaced fracture of the medial malleolus
--- NOTE | 2017-08-05 21:52 | Emergency Department Report ---
ED Lower Extremity HPI - General Chief Complaint: Extremity Injury, Lower Stated Complaint: L. ANKLE INJURY Time Seen by Provider: 08/05/17 21:18 Source: patient Mode of arrival: Wheelchair Limitations: No Limitations - History of Present Illness Initial Comments: This is a 37-year-old male accompanied by mother nontoxic, well nourished in appearance, no acute signs of distress presents to the ED with c/o of left ankle pain and swelling x1 day. Patient stated he fell down the curb and twisted her ankle this afternoon around 12 PM. Patient denies any numbness, tingling, fever, chills, headache, decreased ROM of phalanx, stiff neck, chest pain, shortness of breathe. Patient denies any other trauma. States allergies to Motrin with history of diet controlled HTN. MD Complaint: ankle injury -: This afternoon Injury: Ankle: Left Type of Injury: inversion Place: street/outdoors Severity: mild Severity scale (0 -10): 8 Improves With: nothing Worsens With: nothing Context: other (twisted) Associated Symptoms: swelling, unable to bear weight. denies: snap/pop sensation, numbness, tingling - Related Data Previous Rx's Medication Instructions Recorded Last Taken Type Cyclobenzaprine HCl [Flexeril 5 MG 5 mg PO TID #15 tab 09/14/16 Unknown Rx TAB] Ketorolac [Toradol] 10 mg PO Q6H PRN #20 tablet 09/14/16 Unknown Rx traMADol [Ultram 50 MG tab] 50 mg PO Q6HR PRN #20 tablet 12/13/16 Unknown Rx traMADol [Ultram 50 MG tab] 50 mg PO PRN PRN #14 tablet 12/17/16 Unknown Rx traMADol [Ultram] 50 mg PO Q6HR PRN #15 tablet 08/05/17 Unknown Rx Allergies Allergy/AdvReac Type Severity Reaction Status Date / Time ibuprofen [From Motrin] AdvReac Nausea Verified 12/13/16 01:58 ED Review of Systems ROS: Stated complaint: L. ANKLE INJURY Other details as noted in HPI Constitutional: denies: chills, fever Eyes: denies: eye pain, eye discharge, vision change ENT: denies: ear pain, throat pain Respiratory: denies: cough, shortness of breath, wheezing Cardiovascular: denies: chest pain, palpitations Endocrine: no symptoms reported Gastrointestinal: denies: abdominal pain, nausea, diarrhea Genitourinary: denies: urgency, dysuria Musculoskeletal: denies: back pain, joint swelling, arthralgia Skin: denies: rash, lesions Neurological: denies: headache, weakness, paresthesias Psychiatric: denies: anxiety, depression Hematological/Lymphatic: denies: easy bleeding, easy bruising ED Past Medical Hx - Past Medical History Hx Hypertension: Yes (diet-controlled) - Surgical History Additional Surgical History: rt leg surgery - Social History Smoking Status: Current Every Day Smoker Substance Use Type: Alcohol - Medications Home Medications: Home Medications Medication Instructions Recorded Confirmed Last Taken Type Cyclobenzaprine HCl [Flexeril 5 MG 5 mg PO TID #15 tab 09/14/16 Unknown Rx TAB] Ketorolac [Toradol] 10 mg PO Q6H PRN #20 tablet 09/14/16 Unknown Rx traMADol [Ultram 50 MG tab] 50 mg PO Q6HR PRN #20 tablet 12/13/16 Unknown Rx traMADol [Ultram 50 MG tab] 50 mg PO PRN PRN #14 tablet 12/17/16 Unknown Rx traMADol [Ultram] 50 mg PO Q6HR PRN #15 tablet 08/05/17 Unknown Rx ED Physical Exam - General Limitations: No Limitations General appearance: alert, in no apparent distress - Head Head exam: Present: atraumatic, normocephalic - Eye Eye exam: Present: normal appearance - ENT ENT exam: Present: normal exam, normal orophraynx, mucous membranes moist, TM's normal bilaterally, normal external ear exam - Neck Neck exam: Present: normal inspection, full ROM. Absent: tenderness, meningismus, lymphadenopathy, thyromegaly - Respiratory Respiratory exam: Present: normal lung sounds bilaterally. Absent: respiratory distress, wheezes, rales, rhonchi, stridor, chest wall tenderness, accessory muscle use, decreased breath sounds, prolonged expiratory - Cardiovascular Cardiovascular Exam: Present: regular rate, normal rhythm, normal heart sounds. Absent: bradycardia, tachycardia, irregular rhythm, systolic murmur, diastolic murmur, rubs, gallop - GI/Abdominal GI/Abdominal exam: Present: soft, normal bowel sounds. Absent: distended, tenderness, guarding, rebound, rigid, diminished bowel sounds - Rectal Rectal exam: Present: deferred - Extremities Exam Extremities exam: Present: normal inspection, full ROM, tenderness, normal capillary refill. Absent: pedal edema, joint swelling, calf tenderness - Expanded Lower Extremity Exam Left Hip exam: Present: normal inspection, full ROM Upper Leg exam: Present: normal inspection, full ROM Knee exam: Present: normal inspection, full ROM Lower Leg exam: Present: normal inspection, full ROM Ankle exam: Present: normal inspection, full ROM, tenderness, swelling. Absent : abrasion, laceration, ecchymosis, deformity, crepidus, dislocation, erythema, anterior draw sign Foot/Toe exam: Present: normal inspection, full ROM Neuro vascular tendon exam: Present: no vascular compromise. Absent: pulse deficit, abnormal cap refill, motor deficit, sensory deficit, tendon deficit, extremity cold to touch, pallor, abnormal 2-point discrimination, decreased fine /light touch, foot drop, peroneal nerve deficit, significant pain with passive ROM of distal joint Gait: Positive: observed and limited by pain 1 - pain with swelling - Back Exam Back exam: Present: normal inspection - Neurological Exam Neurological exam: Present: alert, oriented X3, CN II-XII intact, normal gait, reflexes normal - Psychiatric Psychiatric exam: Present: normal affect, normal mood - Skin Skin exam: Present: warm, dry, intact, normal color. Absent: rash - Other Other exam information: Left lower extremity is neurovascular intact. Normal sensation. Normal ROM of phalanx. Normal cap refill <2 seconds. ED Course Vital Signs 08/05/17 19:56 Temperature 98 F Pulse Rate 87 Respiratory 20 Rate Blood Pressure 159/94 O2 Sat by Pulse 98 Oximetry - Reevaluation(s) Reevaluation #1: 08/05/17 21:50 Patient is speaking in full sentences with no signs of distress noted. ED Lower Extremity MDM - Medical Decision Making This is a 37-year-old male that presents with nondisplaced medial malleolus fracture. Xray obtained and dictated by radiologist. Patient has been notified of xray results with no further questions noted by the patient. Patient received left short leg Bishop splint. Post splint assessment: Neurovascular intact with normal cap refill <2 seconds; patient denies feeling of numbness, tingling, or too tight. Patient received crutches and was educated how to use crutches by RN. Patient was instructed to RICe therapy. PAtient was instructed to elevate leg above heart level. PAtient was instructed to Follow-up with a primary care doctor/orthopedic doctor in 3-5 days or if symptoms worsen and continue return to emergency room as soon as possible. At time time of discharge, the patient does not seem toxic or ill in appearance. No acute signs of distress noted. Patient agrees to discharge treatment plan of care. No further questions noted by the patient. Critical care attestation.: If time is entered above; I have spent that time in minutes in the direct care of this critically ill patient, excluding procedure time. ED Disposition Clinical Impression: Medial malleolar fracture Qualifiers: Encounter type: initial encounter Fracture type: closed Fracture alignment: nondisplaced Laterality: left Qualified Code(s): S82.55XA - Nondisplaced fracture of medial malleolus of left tibia, initial encounter for closed fracture Disposition: DC-01 TO HOME OR SELFCARE Is pt being admited?: No Does the pt Need Aspirin: No Condition: Stable Instructions: Ankle Fracture (ED), RICE Therapy (ED), Tramadol (By mouth) Additional Instructions: Follow-up with a primary care doctor/orthopedic doctor in 3-5 days or if symptoms worsen and continue return to emergency room as soon as possible. Rest, elevate and ice extremity Do not operate any machinery while taking Ultram due to drowsiness Prescriptions: traMADol [Ultram] 50 mg PO Q6HR PRN #15 tablet PRN Reason: Pain Referrals: PRIMARY CARE, [Primary Care Provider] - 3-5 Days JAY JAY MORROW MD [Staff Physician] - 3-5 Days ODELL RAIN MD [Staff Physician] - 3-5 Days [facility] [Outside] - 3-5 Days [facility] [Outside] - 3-5 Days Forms: Work/School Release Form(ED)
[2017-08-05] MEDS ORDERED: TYLENOL PO ONE (21:54)
[2017-08-05] MEDS ORDERED: TRIPLE ANTIBIOTIC TP ONE ×2 (22:30→22:33)
[2017-08-05 22:55] VITALS: BP 149/90
== END 2017-08-05 22:55 | disposition home or self-care (01) ==
LOC: ED 19:21
DX: S82.55XA Nondisplaced fracture of medial malleolus of left tibia, initial encounter for closed fracture (principal); I10 Essential (primary) hypertension; F17.200 Nicotine dependence, unspecified, uncomplicated; Z88.6 Allergy status to analgesic agent; X50.1XXA Overexertion from prolonged static or awkward postures, initial encounter; Y93.89 Activity, other specified; Y92.89 Other specified places as the place of occurrence of the external cause; Y99.8 Other external cause status
CPT/HCPCS: A6250

== ENCOUNTER 2017-09-08 11:14 | Emergency (ER) | payer OTHER ==
[2017-09-08 11:38] VITALS: BP 144/101
[2017-09-08] MEDS ORDERED: ASPIRIN PO ONE (11:40)
[2017-09-08 12:09] LABS: Basophils % (Auto) 0.4 % (0.0-1.8); Eosinophils # (Auto) 0.1 K/mm3 (0.0-0.4); Eosinophils % (Auto) 0.7 % (0.0-4.3); Hematocrit 45.3 % (35.5-45.6); Hemoglobin 15.3 gm/dl (11.8-15.2); Lymphocytes # (Auto) 1.7 K/mm3 (1.2-5.4); Lymphocytes % (Auto) 20.7 % (13.4-35.0); Mean Corpuscular HGB Conc 34 % (32-34); Mean Corpuscular Hemoglobin 31 pg (28-32); Mean Corpuscular Volume 90 fl (84-94); Monocytes # (Auto) 0.8 K/mm3 (0.0-0.8); Monocytes % (Auto) 9.5 % (0.0-7.3); Platelet Count 214 K/mm3 (140-440); Red Blood Count 5.01 M/mm3 (3.65-5.03); Red Cell Distribution Width 13.5 % (13.2-15.2)
[2017-09-08 12:32] LABS: BUN/Creatinine Ratio 16; Blood Urea Nitrogen 14 mg/dL (9-20); Calcium 9.9 mg/dL (8.4-10.2); Hemolysis Index 7
== END 2017-09-08 20:21 | disposition left against medical advice (07) ==
LOC: ED 11:14
DX: R07.9 Chest pain, unspecified (principal); Z53.21 Procedure and treatment not carried out due to patient leaving prior to being seen by health care provider
CPT/HCPCS: 36415; 80048; 84484; 85025; 93005; 93010

== ENCOUNTER 2018-10-21 00:39 | Emergency (ER) | payer SELFPAY ==
[2018-10-21 00:49] VITALS: BP 138/87
[2018-10-21] MEDS ORDERED: NACL 0.9% 1000 ML 1,000 ML IV ONE (00:50)
[2018-10-21 01:12] LABS: Basophils % (Auto) 0.4 % (0.0-1.8); Eosinophils # (Auto) 0.1 K/mm3 (0.0-0.4); Eosinophils % (Auto) 0.6 % (0.0-4.3); Hematocrit 45.2 % (35.5-45.6); Hemoglobin 15.3 gm/dl (11.8-15.2); Lymphocytes # (Auto) 2.3 K/mm3 (1.2-5.4); Lymphocytes % (Auto) 26.8 % (13.4-35.0); Mean Corpuscular HGB Conc 34 % (32-34); Mean Corpuscular Volume 90 fl (84-94); Monocytes # (Auto) 0.7 K/mm3 (0.0-0.8); Monocytes % (Auto) 8.3 % (0.0-7.3); Platelet Count 212 K/mm3 (140-440); Red Blood Count 5.02 M/mm3 (3.65-5.03); Red Cell Distribution Width 14.7 % (13.2-15.2)
[2018-10-21 01:38] LABS: Alanine Aminotransferase 24 units/L (7-56); Albumin 4.3 g/dL (3.9-5); BUN/Creatinine Ratio 9; Blood Urea Nitrogen 11 mg/dL (9-20); Calcium 9.1 mg/dL (8.4-10.2); Hemolysis Index 7
[2018-10-21 02:01] LABS: Bilirubin,Urine NEG (Negative); Blood,Urine NEG (Negative); Color,Urine Yellow (Yellow); Mucus,Urine 3+ /HPF
--- NOTE | 2018-10-21 03:25 | Emergency Department Report ---
Addendum entered and electronically signed by JAMES EVANS PA 10/25/18 07:22: ED Review of Systems ROS: Stated complaint: ABD PAIN/VOMITING Other details as noted in HPI Comment: All other systems reviewed and negative Gastrointestinal: abdominal pain (LLQ pain 2/10), nausea (has resolved), vomiting (has resolved) Original Note: ED Abdominal Pain HPI - General Chief Complaint: Abdominal Pain Stated Complaint: ABD PAIN/VOMITING Time Seen by Provider: 10/21/18 03:12 Source: patient Mode of arrival: Ambulatory Limitations: No Limitations - History of Present Illness Initial Comments: 38-year-old -[place] male presents to the emergency room reporting that he has left lower quadrant abdominal pain nausea vomiting. Patient reports he vomited 3 times today denies any nausea at this moment denies any diarrhea at this moment reports to me that his pains to 10. He reports that he missed work today so he came in for work note. He does admit to having a past medical history diverticulitis. He stated that he had taken Pepto-Bismol earlier today which she reports has helped. Patient reports that he drinks alcohol on a social basis. Patient currently does not take any medication on a daily basis MD Complaint: abdominal pain -: days(s) (1) Location: LLQ Migration to: no migration Severity scale (0 -10): 2 Quality: aching Consistency: intermittent Improves With: medication Worsens With: nothing Associated Symptoms: nausea, vomiting ( times 3, last 1900 on 10/20/17) Treatments Prior to Arrival: other (Pepto-Bismol) - Related Data Previous Rx's Medication Instructions Recorded Last Taken Type Cyclobenzaprine HCl [Flexeril 5 MG 5 mg PO TID #15 tab 09/14/16 Unknown Rx TAB] Ketorolac [Toradol] 10 mg PO Q6H PRN #20 tablet 09/14/16 Unknown Rx traMADol [Ultram 50 MG tab] 50 mg PO Q6HR PRN #20 tablet 12/13/16 Unknown Rx traMADol [Ultram 50 MG tab] 50 mg PO PRN PRN #14 tablet 12/17/16 Unknown Rx traMADol [Ultram] 50 mg PO Q6HR PRN #15 tablet 08/05/17 Unknown Rx Amoxicillin [Amoxicillin TAB] 875 mg PO BID #20 tablet 08/22/18 Unknown Rx Nystas/Diphen/Xyl Visc/Mylanta 15 ml MM Q4H PRN 5 Days ml 08/22/18 Unknown Rx [Magic Mouthwash] Allergies Allergy/AdvReac Type Severity Reaction Status Date / Time ibuprofen [From Motrin] AdvReac Nausea Verified 12/13/16 01:58 ED Review of Systems ROS: Stated complaint: ABD PAIN/VOMITING Other details as noted in HPI Comment: All other systems reviewed and negative Gastrointestinal: abdominal pain (LLQ), nausea, vomiting ED Past Medical Hx - Past Medical History Previous Medical History?: Yes Hx Hypertension: Yes (diet-controlled) - Surgical History Past Surgical History?: Yes Additional Surgical History: rt leg surgery - Social History Smoking Status: Current Every Day Smoker Substance Use Type: Alcohol - Medications Home Medications: Home Medications Medication Instructions Recorded Confirmed Last Taken Type Cyclobenzaprine HCl [Flexeril 5 MG 5 mg PO TID #15 tab 09/14/16 Unknown Rx TAB] Ketorolac [Toradol] 10 mg PO Q6H PRN #20 tablet 09/14/16 Unknown Rx traMADol [Ultram 50 MG tab] 50 mg PO Q6HR PRN #20 tablet 12/13/16 Unknown Rx traMADol [Ultram 50 MG tab] 50 mg PO PRN PRN #14 tablet 12/17/16 Unknown Rx traMADol [Ultram] 50 mg PO Q6HR PRN #15 tablet 08/05/17 Unknown Rx Amoxicillin [Amoxicillin TAB] 875 mg PO BID #20 tablet 08/22/18 Unknown Rx Nystas/Diphen/Xyl Visc/Mylanta 15 ml MM Q4H PRN 5 Days ml 08/22/18 Unknown Rx [Magic Mouthwash] ED Physical Exam - General Limitations: No Limitations General appearance: alert - Head Head exam: Present: atraumatic, normocephalic - Eye Eye exam: Present: normal appearance - ENT ENT exam: Present: mucous membranes moist - Neck Neck exam: Present: normal inspection - Respiratory Respiratory exam: Present: normal lung sounds bilaterally. Absent: respiratory distress - Cardiovascular Cardiovascular Exam: Present: regular rate, normal rhythm. Absent: systolic murmur, diastolic murmur, rubs, gallop - GI/Abdominal GI/Abdominal exam: Present: soft, tenderness. Absent: distended, guarding, rebound, rigid - Extremities Exam Extremities exam: Present: full ROM - Neurological Exam Neurological exam: Present: alert, oriented X3 - Psychiatric Psychiatric exam: Present: normal affect, normal mood - Skin Skin exam: Present: warm, dry, intact, normal color. Absent: rash ED Course Vital Signs 10/21/18 00:44 Temperature 97.5 F L Pulse Rate 102 H Blood Pressure 138/87 - Reevaluation(s) Reevaluation #1: 10/21/18 03:32 Patient started on by mouth trial. ED Medical Decision Making - Lab Data Result diagrams: 10/21/18 00:56 10/21/18 00:56 Critical care attestation.: If time is entered above; I have spent that time in minutes in the direct care of this critically ill patient, excluding procedure time. ED Disposition Clinical Impression: Abdominal pain Qualifiers: Abdominal location: left lower quadrant Qualified Code(s): R10.32 - Left lower quadrant pain Disposition: DC-01 TO HOME OR SELFCARE Is pt being admited?: No Does the pt Need Aspirin: No Condition: Stable Instructions: Abdominal Pain (ED) Additional Instructions: Please continue with Tylenol or Motrin for pain management. Increase her water intake. Advance her diet as tolerated. Follow up with her primary care provider if his symptoms get worse. Referrals: PRIMARY CAREMD [Primary Care Provider] - 3-5 Days [facility] [Provider Group] - 3-5 Days Forms: Work/School Release Form(ED)
== END 2018-10-21 04:50 | disposition home or self-care (01) ==
LOC: ED 00:39
DX: R10.32 Left lower quadrant pain (principal); I10 Essential (primary) hypertension; F17.200 Nicotine dependence, unspecified, uncomplicated
CPT/HCPCS: 36415; 80053; 81001; 85025

== ENCOUNTER 2018-11-17 17:45 | Emergency (ER) | payer SELFPAY | END 2018-11-17 19:20 | disposition left against medical advice (07) | LOC: ED 17:45 ==

== ENCOUNTER 2019-03-09 01:10 | Emergency (ER) | payer OTHER ==
[2019-03-09 01:49] LABS: Basophils # (Auto) 0.1 K/mm3 (0.0-0.1); Basophils % (Auto) 0.7 % (0.0-1.8); Eosinophils # (Auto) 0.1 K/mm3 (0.0-0.4); Eosinophils % (Auto) 1.3 % (0.0-4.3); Hematocrit 45.6 % (35.5-45.6); Hemoglobin 15.3 gm/dl (11.8-15.2); Lymphocytes # (Auto) 2.3 K/mm3 (1.2-5.4); Lymphocytes % (Auto) 28.8 % (13.4-35.0); Mean Corpuscular HGB Conc 34 % (32-34); Mean Corpuscular Volume 91 fl (84-94); Monocytes # (Auto) 0.7 K/mm3 (0.0-0.8); Monocytes % (Auto) 8.2 % (0.0-7.3); Platelet Count 209 K/mm3 (140-440); Red Blood Count 5.02 M/mm3 (3.65-5.03); Red Cell Distribution Width 14.5 % (13.2-15.2)
[2019-03-09 02:11] LABS: BUN/Creatinine Ratio 13; Blood Urea Nitrogen 14 mg/dL (9-20); Calcium 9.7 mg/dL (8.4-10.2); Hemolysis Index 23
--- NOTE | 2019-03-09 02:16 | XRay Report ---
CHEST 1 VIEW INDICATION / CLINICAL INFORMATION: Chest Pain. COMPARISON: None available. FINDINGS: SUPPORT DEVICES: None. HEART / MEDIASTINUM: No significant abnormality. LUNGS / PLEURA: No significant pulmonary or pleural abnormality. No pneumothorax. ADDITIONAL FINDINGS: No significant additional findings. IMPRESSION: 1. No acute findings. Signer Name: Liss Reddy MD Signed: 03/09/2019 2:12 AM Workstation Name: [id number]
[2019-03-09 03:15] LABS: INR 1.04 (0.87-1.13); Partial Thromboplastin Time 33.2 Sec. (24.2-36.6)
--- NOTE | 2019-03-09 05:14 | Cat Scan Report ---
CTA CHEST WITH IV CONTRAST INDICATION / CLINICAL INFORMATION: CP, elevated dimer. TECHNIQUE: Axial CT images were obtained through the chest after injection of IV contrast. 3 plane MIP and/or 3D reconstructions were produced. All CT scans at this location are performed using CT dose reduction f or ALARA by means of automated exposure control. COMPARISON: Chest radiograph, 03/09/2019 FINDINGS: PULMONARY ARTERIES: No pulmonary emboli. THORACIC AORTA: No significant abnormality. HEART: No significant abnormality. CORONARY ARTERIES: No significant calcification. PLEURA: No pleural effusion. No pneumothorax. LYMPH NODES: No significant adenopathy. LUNGS: There is an 8 mm noncalcified pulmonary nodule in the right upper lobe. The lungs are otherwis e clear. ADDITIONAL FINDINGS: None. UPPER ABDOMEN: No acute findings. SKELETAL STRUCTURES: No significant osseous abnormality. IMPRESSION: 1. No CT evidence for pulmonary embolism. 2. No acute findings. 3. Incidental finding of an 8 mm pulmonary nodule, right upper lobe. INCIDENTAL PULMONARY NODULE MARC MMENDATION Recommendation: Solid Nodule size 6-8 mm -- Single - Low Risk Patient: CT at 6-12 months, then consider CT at 18-24 months - High Risk Patient: CT at 6-12 months, then CT at 18-24 months Note These recommendations do not apply to lung cancer screening, patients with immunosuppression, o r patients with known primary cancer. Note Newly detected indeterminate nodule in persons 35 years of age or older. Persons under the age of 35 should not receive follow-up unless there is a known primary cancer. Low Risk Patient -- minimal or absent history of smoking and of other known risk factors. High Risk Patient -- history of smoking or of other known risk factors. Nodule dimensions are average of long and short axes, rounded to the nearest millimeter. Based on 2017 Fleischner Society Guidelines found in Radiology 2017 284:228-243. [email or web address] Signer Name: Liss Reddy MD Signed: 03/09/2019 5:10 AM Workstation Name: [id number]
--- NOTE | 2019-03-09 06:14 | Emergency Department Report ---
ED Chest Pain HPI - General Chief Complaint: Chest Pain Stated Complaint: CHEST PAIN, LEG SWELLING,DIZZINESS Time Seen by Provider: 03/09/19 02:16 Source: patient Mode of arrival: Ambulatory Limitations: No Limitations - History of Present Illness Initial Comments: 39-year-old -[place] male presents to the emergency department with a complaint of a one-week history of intermittent midsternal nonradiating chest pain. He denies any fever, shortness of breath, nausea, vomiting or diaphoresis. He has a past mental history of diet-controlled hypertension. He is a tobacco smoker but denies any illicit drug use. He has not taken anything for his symptoms prior to arrival today. He does not have any primary care physician or senior premium auditor. No recent travel or sick contacts at home. Severity scale (0 -10): 0 - Related Data Previous Rx's Medication Instructions Recorded Last Taken Type Cyclobenzaprine HCl [Flexeril 5 MG 5 mg PO TID #15 tab 09/14/16 Unknown Rx TAB] Ketorolac [Toradol] 10 mg PO Q6H PRN #20 tablet 09/14/16 Unknown Rx traMADol [Ultram 50 MG tab] 50 mg PO Q6HR PRN #20 tablet 12/13/16 Unknown Rx traMADol [Ultram 50 MG tab] 50 mg PO PRN PRN #14 tablet 12/17/16 Unknown Rx traMADol [Ultram] 50 mg PO Q6HR PRN #15 tablet 08/05/17 Unknown Rx Amoxicillin [Amoxicillin TAB] 875 mg PO BID #20 tablet 08/22/18 Unknown Rx Nystas/Diphen/Xyl Visc/Mylanta 15 ml MM Q4H PRN 5 Days ml 08/22/18 Unknown Rx [Magic Mouthwash] Allergies Allergy/AdvReac Type Severity Reaction Status Date / Time ibuprofen [From Motrin] Allergy Hives Verified 11/17/18 17:46 Heart Score - HEART Score History: Slightly suspicious EKG: Normal Age: < 45 Risk factors: 1-2 risk factors Troponin: < normal limit HEART Score: 1 - Critical Actions Critical Actions: 0-3 pts:0.9-1.7%risk of adverse cardiac event.Candidate for discharge ED Review of Systems ROS: Stated complaint: CHEST PAIN, LEG SWELLING,DIZZINESS Other details as noted in HPI Comment: All other systems reviewed and negative Constitutional: denies: chills, fever Eyes: denies: eye pain, vision change ENT: denies: ear pain, throat pain Respiratory: denies: cough, shortness of breath Cardiovascular: chest pain. denies: palpitations Gastrointestinal: denies: abdominal pain, vomiting Genitourinary: denies: dysuria, discharge Musculoskeletal: denies: back pain, arthralgia Skin: denies: rash, lesions Neurological: denies: headache, weakness ED Past Medical Hx - Past Medical History Previous Medical History?: Yes Hx Hypertension: Yes (diet-controlled) - Surgical History Past Surgical History?: Yes Additional Surgical History: rt leg surgery - Social History Smoking Status: Current Every Day Smoker Substance Use Type: None - Medications Home Medications: Home Medications Medication Instructions Recorded Confirmed Last Taken Type Cyclobenzaprine HCl [Flexeril 5 MG 5 mg PO TID #15 tab 09/14/16 Unknown Rx TAB] Ketorolac [Toradol] 10 mg PO Q6H PRN #20 tablet 09/14/16 Unknown Rx traMADol [Ultram 50 MG tab] 50 mg PO Q6HR PRN #20 tablet 12/13/16 Unknown Rx traMADol [Ultram 50 MG tab] 50 mg PO PRN PRN #14 tablet 12/17/16 Unknown Rx traMADol [Ultram] 50 mg PO Q6HR PRN #15 tablet 08/05/17 Unknown Rx Amoxicillin [Amoxicillin TAB] 875 mg PO BID #20 tablet 08/22/18 Unknown Rx Nystas/Diphen/Xyl Visc/Mylanta 15 ml MM Q4H PRN 5 Days ml 08/22/18 Unknown Rx [Magic Mouthwash] ED Physical Exam - General Limitations: No Limitations - Other Other exam information: GENERAL: The patient is well-developed well-nourished. HENT: Normocephalic. Atraumatic. Patient has moist mucous membranes. EYES: Extraocular motions are intact. Pupils equal reactive to light bilaterally. NECK: Supple. Trachea is midline. CHEST/LUNGS: Clear to auscultation. There is no respiratory distress noted. There is some reproducible chest pain upon palpation of the chest wall. No crepitus or deformity. HEART/CARDIOVASCULAR: Regular. There is no tachycardia. There is no murmur. ABDOMEN: Abdomen is soft, nontender. Patient has normal bowel sounds. There is no abdominal distention. SKIN: Skin is warm and dry. NEURO: The patient is awake, alert, and oriented. The patient is cooperative. The patient has no focal neurologic deficits. The patient has normal speech. MUSCULOSKELETAL: There is no tenderness or deformity. There is no limitation range of motion. There is no evidence of acute injury. ED Course Vital Signs 03/09/19 03/09/19 03/09/19 01:21 02:22 02:26 Temperature 97.6 F Pulse Rate 96 H 88 88 Respiratory 18 12 16 Rate Blood Pressure 139/102 Blood Pressure 139/88 [Right] O2 Sat by Pulse 99 96 Oximetry 03/09/19 03/09/19 03/09/19 03:00 04:00 05:02 Temperature Pulse Rate 86 83 Respiratory 15 14 Rate Blood Pressure 131/81 133/84 133/84 Blood Pressure [Right] O2 Sat by Pulse 92 95 98 Oximetry 03/09/19 06:00 Temperature Pulse Rate 83 Respiratory 15 Rate Blood Pressure 128/82 Blood Pressure [Right] O2 Sat by Pulse 96 Oximetry LEATHA score - Leatha Score Age > 65: (0) No Aspirin use within the Past 7 Days: (0) No 3 or more CAD Risk Factors: (0) No 2 or more Angina events in past 24 hrs: (1) Yes (If pain is angina) Known CAD with more than 50% Stenosis: (0) No Elevated Cardiac Markers: (0) No ST Deviation Greater than 0.5mm: (0) No LEATHA Score: 1 ED Medical Decision Making - Lab Data Result diagrams: 03/09/19 01:42 03/09/19 01:42 - EKG Data -: EKG Interpreted by Me EKG shows normal: sinus rhythm, axis, intervals, QRS complexes, ST-T waves Rate: normal - EKG Data When compared to previous EKG there are: previous EKG unavailable Interpretation: normal EKG - Radiology Data Radiology results: report reviewed, image reviewed interpreted by me: Chest x-ray does not show any acute process. There are no pleural effusions, obvious pneumonia and there is no pneumothorax. CTA CHEST WITH IV CONTRAST INDICATION / CLINICAL INFORMATION: CP, elevated dimer. TECHNIQUE: Axial CT images were obtained through the chest after injection of IV contrast. 3 plane MIP and/or 3D reconstructions were produced. All CT scans at this location are performed using CT dose reduction for ALARA by means of automated exposure control. COMPARISON: Chest radiograph, 03/09/2019 FINDINGS: PULMONARY ARTERIES: No pulmonary emboli. THORACIC AORTA: No significant abnormality. HEART: No significant abnormality. CORONARY ARTERIES: No significant calcification. PLEURA: No pleural effusion. No pneumothorax. LYMPH NODES: No significant adenopathy. LUNGS: There is an 8 mm noncalcified pulmonary nodule in the right upper lobe. The lungs are otherwise clear. ADDITIONAL FINDINGS: None. UPPER ABDOMEN: No acute findings. SKELETAL STRUCTURES: No significant osseous abnormality. IMPRESSION: 1. No CT evidence for pulmonary embolism. 2. No acute findings. 3. Incidental finding of an 8 mm pulmonary nodule, right upper lobe. INCIDENTAL PULMONARY NODULE RECOMMENDATION - Medical Decision Making This patient presented with a one-week history of some intermittent chest pains. While there was some mention to triage of lower extremity swelling, the patient did not make this complaint to me and it was specifically asked of him. Also, on examination, he does not have any significant swelling. His chest pain is at least partly reproducible to palpation of the chest wall. EKG did not show any signs of ST elevation DC, ischemia or dysrhythmia. His chest x-ray did not show any acute process. Labs were unremarkable including negative troponins 2 but he did have a very slightly elevated and equivocal d-dimer. CT angiography of the chest was done and did not show any pulmonary embolism, dissection, aneurysm, or any other acute process. The patient is very low on the heart score criteria and LEATHA score. For all of these reasons, the patient is safe for discharge home at this time. He is given a referral for primary care and cardiology. He will return to the emergency Department with any worsening of his symptoms or any acute distress. - Differential Diagnosis DC, PE, costochondritis, GERD Critical Care Time: No Critical care attestation.: If time is entered above; I have spent that time in minutes in the direct care of this critically ill patient, excluding procedure time. ED Disposition Clinical Impression: Atypical chest pain, Pulmonary nodule Disposition: - TO HOME OR SELFCARE Is pt being admited?: No Condition: Stable Instructions: Chest Pain (ED), Costochondritis (ED), Pulmonary Nodules (ED) Additional Instructions: Please follow up with a primary care physician in the next few days. I am giving him a referral for a local senior premium auditor, Dr. Velasco, to follow up regarding your chest pains. You will also need to follow-up with a primary care physician or a lean manager regarding the incidental finding of a pulmonary nodule, found on your chest CT. You will most likely need a repeat CT imaging at 6-12 months to evaluate this pulmonary nodule. Return to the emergency Department with any worsening of your symptoms or any acute distress. Referrals: [facility] [Outside] - 3-5 Days ERIC VELASCO MD [Staff Physician] - 3-5 Days Time of Disposition: 06:17
[2019-03-09 07:11] VITALS: BP 128/82
== END 2019-03-09 06:30 | disposition home or self-care (01) ==
LOC: ED 01:10
DX: R91.1 Solitary pulmonary nodule (principal); I10 Essential (primary) hypertension; F17.200 Nicotine dependence, unspecified, uncomplicated; Z98.890 Other specified postprocedural states; Z88.6 Allergy status to analgesic agent
CPT/HCPCS: 36415; 71045; 71275; 80048; 83880; 84484; 85025; 85379; 85610; 85730; 93005; 93010; 99285; Q9967